=== PATIENT | male | born 1940 | race American Indian/Alaskan Native ===

== ENCOUNTER 2018-05-13 14:17 | Emergency (ER) | payer MEDICARE ==
[2018-05-13 14:17] VITALS: BMI 27.9
[2018-05-13 14:53] VITALS: TEMP 98.5
[2018-05-13] MEDS ORDERED: Enalaprilat 2.5 MG/2 ML IV STA (15:34)
[2018-05-13] MEDS ORDERED: Enalaprilat 2.5 MG/2 ML ONE (16:02)
[2018-05-13 16:10] VITALS: BP 178/88; PULSE 72; RESP 12; O2SAT 100
[2018-05-13 16:14] LABS: ALB/GLOB RATIO 1.1 (1.0-2.1); ALBUMIN 4.2 g/dL (3.5-5.0); CALCIUM 9.5 mg/dl (8.6-10.4)
[2018-05-13 16:18] LABS: BASO # 0.1 K/uL (0.0-0.2); BASO % 1.3 % (0.0-2.0); EOS # 0.1 K/uL (0.0-0.7); EOS % 1.6 % (0.0-4.0); HEMOGLOBIN 12.3 g/dL (12.0-18.0); LYMPH # 1.1 K/uL (1.0-4.3); LYMPH % 17.9 % (20.0-40.0); MEAN CORPUSCULAR HEMOGLOBIN 31.1 pg (27.0-31.0); MEAN CORPUSCULAR HGB CONC 33.5 g/dL (33.0-37.0); MEAN PLATELET VOLUME 8.6 fL (7.2-11.7); MONO # 0.6 K/uL (0.0-0.8); MONO % 9.6 % (0.0-10.0); NEUT # 4.2 K/uL (1.8-7.0); NEUT % 69.6 % (50.0-75.0); NRBC % 0.1 % (0.0-2.0); RBC 3.94 Mil/uL (4.40-5.90); RED CELL DISTRIBUTION WIDTH 14.1 % (11.5-14.5)
--- NOTE | 2018-05-13 16:23 | C.PDOC ---
History Of Present Illness 77yo man with h/o htn and atrial fib reporting lightheadedness for 1 day. Admits that he did not take his medication for htn this morning. Mild generalized weakness. +leg pain which has been chronic. Pt denies chest pain or shortness of breath or leg swelling. PMD Dr Calderon Time Seen by Provider: 05/13/18 15:07 Chief Complaint (Nursing): High Blood Pressure History Per: Patient History/Exam Limitations: no limitations Onset/Duration Of Symptoms: Gradual Associated Symptoms: Dizziness. denies: Chest Pain, Blurred Vision, Focal Weakness, Headache Quality Of Symptoms: Asymptomatic Past Medical History Reviewed: Historical Data, Nursing Documentation, Vital Signs Vital Signs: Last Vital Signs Temp 98.5 F 05/13/18 14:43 Pulse 72 05/13/18 16:10 Resp 12 05/13/18 16:10 BP 178/88 H 05/13/18 16:10 Pulse Ox 100 05/13/18 16:10 - Medical History PMH: Benign Prostatic Hyperplasia, HTN, Hypercholesterolemia, Osteoporosis Denies: Chronic Kidney Disease Surgical History: Endoscopy Family History: States: No Known Family Hx - Social History Hx Alcohol Use: No Hx Substance Use: No Review Of Systems Except As Marked, All Systems Reviewed And Found Negative. Constitutional: Positive for: Weakness Neurological: Positive for: Dizziness. Negative for: Headache Physical Exam - Physical Exam Appears: Well, Non-toxic Skin: Warm, Dry Head: Atraumatic, Normacephalic Eye(s): bilateral: PERRL, EOMI Throat: Normal Chest: Symmetrical, No Tenderness Cardiovascular: Rhythm Regular, No Murmur Respiratory: Normal Breath Sounds, No Wheezing Gastrointestinal/Abdominal: Soft, No Tenderness Back: Normal Inspection Extremity: Normal ROM, No Pedal Edema Neurological/Psych: Oriented x3, Normal Speech, Normal Cranial Nerves, Normal Motor, Normal Sensation ED Course And Treatment - Laboratory Results Result Diagrams: 05/13/18 15:56 05/13/18 15:56 Interpretation Of Abnormal: No emergently significant abnormalities. O2 Sat by Pulse Oximetry: 100 (RA) Pulse Ox Interpretation: Normal Progress Note: Pt's BP normalized with IV enaliprilat. DW pt findings. pt stable for discharge. Pt requesting refills of meds. Advised followup PMD urgently for refills. Plavix and Lasix rx given. Disposition - Disposition Referrals: Corry Calderon DO [[facility]] - 05/14/18 Disposition: HOME/ ROUTINE Disposition Time: 16:53 Condition: IMPROVED Prescriptions: Clopidogrel [Plavix] 75 mg PO DAILY #10 tab Furosemide [Lasix] 20 mg PO DAILY #10 tab Instructions: High Blood Pressure (DC) - Clinical Impression Clinical Impression: Hypertension
[2018-05-13 16:25] LABS: TROPONIN I 0.017 ng/mL (0.00-0.120)
--- NOTE | 2018-05-14 11:32 | CARD ---
APPROVED REPORT Date of service: 05/13/2018 EKG Measurement Heart [id number] <Conclusion> nsr,apcs, Nonspecific T wave abnormality Abnormal ECG
== END 2018-05-13 17:31 | disposition home or self-care (01) ==
LOC: C.ER 14:17
DX: I10 Essential (primary) hypertension (principal); I48.91 Unspecified atrial fibrillation; E78.00 Pure hypercholesterolemia, unspecified; N40.0 Benign prostatic hyperplasia without lower urinary tract symptoms

== ENCOUNTER 2018-06-18 02:10 | Inpatient (IN) | payer MEDICARE ==
[2018-06-18 02:10] VITALS: BMI 27.9
[2018-06-18] MEDS ORDERED: Lidocaine 2% Jelly (Uro-Jet) ONE (02:32)
--- NOTE | 2018-06-18 02:45 | C.PDOC ---
History Of Present Illness Patient had his dumas removed yesterday morning and presents in acute urinary retention. Last voided a few hours ago. No f/c/n/v. 5/10 discomfort Time Seen by Provider: 06/18/18 02:27 Chief Complaint (Nursing): Male Genitourinary History Per: Patient History/Exam Limitations: no limitations Onset/Duration Of Symptoms: Hrs Current Symptoms Are (Timing): Still Present Severity: Severe Pain Scale Rating Of: 6 Quality Of Discomfort: Sharp, Pressure Associated Symptoms: denies: Fever, Chills Alleviating Factors: None Recent travel outside of the [place]: No Additional History Per: Family Past Medical History Reviewed: Historical Data, Nursing Documentation, Vital Signs Vital Signs: Last Vital Signs Temp 98.1 F 06/18/18 02:34 Pulse 88 06/18/18 02:34 Resp 16 06/18/18 02:34 BP 180/91 H 06/18/18 02:34 Pulse Ox 99 06/18/18 02:34 - Medical History PMH: Benign Prostatic Hyperplasia, HTN, Hypercholesterolemia, Osteoporosis Denies: Chronic Kidney Disease Surgical History: Endoscopy Family History: States: No Known Family Hx - Social History Hx Alcohol Use: No Hx Substance Use: No Review Of Systems Constitutional: Negative for: Fever, Chills Gastrointestinal: Positive for: Other (globus vesicalis). Negative for: Nausea, Vomiting Genitourinary: Positive for: Other (urinary retention) Skin: Negative for: Rash Neurological: Negative for: Weakness Psych: Negative for: Anxiety Physical Exam - Physical Exam Appears: Non-toxic, In Acute Distress Gastrointestinal/Abdominal: Soft, Tenderness, Distention (bladder) Male Genital: Circumcised Neurological/Psych: Oriented x3 Gait: Steady ED Course And Treatment O2 Sat by Pulse Oximetry: 99 Pulse Ox Interpretation: Normal Progress Note: i've placed an 14 fr dumas without any difficulty. aprox 700 cc of clear urine drained. Pt with instant relief Disposition Counseled Patient/Family Regarding: Studies Performed, Diagnosis, Need For Followup - Disposition Referrals: Jaye Huerta MD [Staff Provider] - Disposition: HOME/ ROUTINE Disposition Time: 02:43 Condition: FAIR Instructions: Dumas Catheter, Male, Urinary Retention (DC) Forms: [employer] (Citizen Of [place]) - Clinical Impression Clinical Impression: Acute urinary retention
[2018-06-18 03:56] LABS: BASO % 0.5 % (0.0-2.0); EOS % 0.5 % (0.0-4.0); HEMOGLOBIN 11.8 g/dL (12.0-18.0); LYMPH # 0.7 K/uL (1.0-4.3); LYMPH % 8.2 % (20.0-40.0); MEAN CELL VOLUME 92.1 fL (80.0-94.0); MEAN CORPUSCULAR HEMOGLOBIN 30.5 pg (27.0-31.0); MEAN CORPUSCULAR HGB CONC 33.2 g/dL (33.0-37.0); MEAN PLATELET VOLUME 8.5 fL (7.2-11.7); MONO # 0.7 K/uL (0.0-0.8); MONO % 7.9 % (0.0-10.0); NEUT # 6.9 K/uL (1.8-7.0); NEUT % 82.9 % (50.0-75.0); PLATELET COUNT 236 K/uL (130-400); RBC 3.85 Mil/uL (4.40-5.90); RED CELL DISTRIBUTION WIDTH 14.2 % (11.5-14.5); WHITE BLOOD COUNT 8.3 K/uL (4.8-10.8)
[2018-06-18 04:01] LABS: INR 1.1; PROTHROMBIN TIME 11.5 SECONDS (9.7-12.2)
[2018-06-18 04:03] LABS: CALCIUM 8.2 mg/dl (8.6-10.4)
[2018-06-18] MEDS ORDERED: Potassium Chloride 10 mEq ER Tab PO STA (04:13)
[2018-06-18] MEDS ORDERED: Potassium Chloride 20 mEq ER Tab PO ONE (04:29)
[2018-06-18 05:03] LABS: BANDS 1 % (0-2); LYMPHOCYTE 6 % (20-40); MONOCYTE 12 % (0-10); NEUTROPHIL 81 % (50-75); TOTAL CELLS COUNTED 100
[2018-06-18 05:04] LABS: ANISOCYTOSIS SLIGHT; PLATELET ESTIMATE NORMAL (NORMAL)
[2018-06-18 11:52] VITALS: RESP 20
[2018-06-18] MEDS ORDERED: Glucagon Recombinant 1 mg Inj IM PRN (14:37)
[2018-06-18] MEDS ORDERED: Dextrose 50% SYRINGE Inj (50 ml) IV PRN (14:37)
--- NOTE | 2018-06-18 17:01 | CT ---
Date of service: 06/18/2018 PROCEDURE: CT HEAD WITHOUT CONTRAST. HISTORY: R/O CVA COMPARISON: None available. TECHNIQUE: Axial computed tomography images were obtained through the head/brain without intravenous contrast. Radiation dose: Total exam DLP = 1088.15 mGy-cm. This CT exam was performed using one or more of the following dose reduction techniques: Automated exposure control, adjustment of the mA and/or kV according to patient size, and/or use of iterative reconstruction technique. FINDINGS: HEMORRHAGE: No acute parenchymal, subarachnoid or extra-axial hemorrhage. BRAIN: Moderate to fairly significant diffuse/confluent chronic periventricular white matter ischemic changes seen extending peripherally into the deep and subcortical white matter both cerebral hemispheres. Changes extend into white matter tracts of both basal nuclei. Left greater than right. Few chronic tiny lacunar-type infarcts scattered about both basal nuclei also felt to be present. There also appears to be more discrete deep white matter infarct left frontal region which is associated with ex vacuo dilatation of the left frontal horn and anterior body left lateral ventricle. Note that the possibility of a small hyperacute infarct cannot be excluded based on this exam. Moderate generalized volume loss with common not withstanding ex vacuo dilatation of the left lateral ventricle mentioned above. Vascular calcifications both carotid siphons VENTRICLES: Un no obstructive hydrocephalus. CALVARIUM: There are no acute calvarial fractures. PARANASAL SINUSES: Small focus of polypoid like mucosal thickening right maxillary antrum. Minimal mucosal thickening multiple ethmoid air cells extending superiorly into the inferior margin of the slight the hypoplastic frontal sinus MASTOID AIR CELLS: Partial opacification several inferior right-sided mastoid air cells. OTHER FINDINGS: Changes of bilateral cataract surgery present. IMPRESSION: Moderate to fairly significant diffuse/confluent chronic periventricular white matter ischemic changes seen extending peripherally into the deep and subcortical white matter both cerebral hemispheres. Changes extend into white matter tracts of both basal nuclei. Left greater than right. Few chronic tiny lacunar type infarcts type scattered about both basal nuclei also felt to be present. There also appears to be more discrete deep white matter infarct left frontal region which is associated with ex vacuo dilatation of the left frontal horn and anterior body left lateral ventricle.. Moderate generalized volume loss
[2018-06-18] MEDS: (Novolog) Insulin Aspart, Recombinant 100 u/ml 10 ml vial SC SCH ×2 (17:35→23:06)
--- NOTE | 2018-06-19 06:21 | HP ---
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 The patient stated that at first he had some difficulty to urinate and went to the hospital. A catheter was inserted, but the day after the catheter was removed by urologist. The patient again had this urinary retention. At that time, the patient came back to the Emergency Room at [facility], and the [place] catheter was replaced again but recommendation was made for the patient to be admitted. In fact, the patient also stated that he had some difficulty walking with both feet on the floor, but I did not see any difference from last week when I saw the patient in my office. The patient still complains of this weakness of both lower extremities. ALLERGIES: NO KNOWN ALLERGY. PAST MEDICAL HISTORY: History of hypertension, BPH, and also hyperlipidemia. There is no history of CKD. SOCIAL HISTORY: The patient has no history of smoking or alcohol abuse. 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 FAMILY HISTORY: No inherited disease. REVIEW OF SYSTEMS: RESPIRATORY SYSTEM: No shortness of breath. CARDIOVASCULAR: Denies any chest pain. GASTROINTESTINAL: The patient is having some epigastric discomfort. GENITOURINARY: The patient has discomfort in the genital area, having a Canada catheter in place. NEUROLOGIC: The patient is complaining of weakness in both lower extremities and also some numbness of both lower extremities. PHYSICAL EXAMINATION: GENERAL: The patient is alert, awake, and oriented x3 and pleasant. VITAL SIGNS: Blood pressure of 160/88, pulse 79, respiration 20, temperature 98.8. HEENT: Head is normocephalic. NECK: Supple. No JVD. LUNGS: Clear. HEART: Regular rate and rhythm. Positive murmur. ABDOMEN: Soft, obese. Mild epigastric tenderness. EXTREMITIES: There is no edema noted. NEUROLOGIC: There is no apparent motor deficit, but the patient is still complaining of and numbness in the lower extremities and difficulty walking. LABORATORY DATA: The patient has some tests done. WBC 8.2, hemoglobin 11.8, hematocrit 35.4, and platelet is 216. Chemistry: Sodium 134, potassium 3, chloride 95, bicarb 27, BUN 36, creatinine 2.2, glucose 74, and calcium 8.2. Coag showed PT 11.5, INR 1.1, and PTT 33. The patient had a CAT scan of the head. The CT of the head without contrast revealed the patient has moderate to fairly diffuse confluent chronic periventricular white matter ischemic change extending into the deep and subcortical white matter posterior wall . There also appeared to be more discrete and deep white matter infarct in left frontal region which is associated with of the left frontal horn and anterior body of left lateral ventricle. IMPRESSION: The patient is admitted with diagnoses of: 1. Acute urinary retention. 2. Chronic kidney disease. 3. Hypertension. 4. Chronic cerebrovascular accident. 5. Weakness of both lower extremities. 6. Benign prostatic hypertrophy. 7. Hyperlipidemia. PLAN: The patient will have a consult with Dr. Huerta. We ordered a consult also with Dr. Burrell for medical clearance and followup of the hypertensive history. Also, we ordered a neuro consult because of the weakness of both lower extremities. The case was reviewed and discussed with Chelsie Gar, the nurse practitioner. Neville Cruz MD
[2018-06-19 08:31] LABS: CALCIUM 8.2 mg/dl (8.6-10.4)
[2018-06-19] MEDS: (Novolog) Insulin Aspart, Recombinant 100 u/ml 10 ml vial SC SCH ×4 (09:20→22:54)
[2018-06-19] MEDS: Multiple Vitamins Tab PO SCH (11:54)
--- NOTE | 2018-06-19 12:00 | CT ---
Date of service: 06/18/2018 PROCEDURE: CT Abdomen and Pelvis without intravenous contrast HISTORY: urinary retention /flank pain COMPARISON: Pain TECHNIQUE: Without contrast.. Contrast dose: 0 Radiation dose: Total exam DLP = 710.55 mGy-cm. This CT exam was performed using one or more of the following dose reduction techniques: Automated exposure control, adjustment of the mA and/or kV according to patient size, and/or use of iterative reconstruction technique. FINDINGS: LOWER THORAX: Linear scar/atelectasis both lower lobes. Cardiomegaly. LIVER: Unremarkable. No gross lesion or ductal dilatation. GALLBLADDER AND BILE DUCTS: Unremarkable. PANCREAS: Unremarkable. No gross lesion or ductal dilatation. SPLEEN: Unremarkable. ADRENALS: Left adrenal hypertrophy. Right adrenal low-density mass, 1.6 cm in diameter, measuring 1.9 Hounsfield units. Consistent with adrenal adenoma (lipid rich). No further evaluation required. KIDNEYS AND URETERS: 11 mm nonobstructing right lower pole renal calculus. Possible tiny hyperdense cyst mid left kidney, 5 mm diameter. Consider correlation with ultrasound examination. VASCULATURE: Unremarkable. No aortic aneurysm. No aortic atherosclerotic calcification or mural plaque present. BOWEL: Unremarkable. No obstruction. No gross mural thickening. APPENDIX: unremarkable. Normal appendix. PERITONEUM: Very small umbilical hernia containing only mesenteric fat. No ascites. No pneumoperitoneum no inguinal hernia. LYMPH NODES: Unremarkable. No enlarged lymph nodes. BLADDER: Decompressed around [place] catheter balloon. There is high attenuation material seen within the bladder lumen raising some suspicion of hematuria. Correlate clinically. Bladder wall is thickened, despite the decompressed nature of the bladder. Correlate for cystitis. REPRODUCTIVE: Enlarged prostate BONES: Paget's disease noted involving the 3rd lumbar vertebral body. This extends into the posterior elements. Mild compression deformity of the L3 vertebra with some retropulsion of the posterior margin of the vertebral body. Severe central spinal stenosis at the L3 and L3-4 vertebral levels. Also moderate spinal stenosis at the L4-5 level due to disc bulge. Paget's disease likely involving the left iliac bone. Likely involving the right sacral ala. Involves the left hemipelvis with involvement of both the superior and inferior left pubic rami. Possible Paget's disease involving both femoral heads. OTHER FINDINGS: None. IMPRESSION: 11 mm nonobstructing right lower pole renal calculus. Possible tiny hyperdense cyst mid left kidney. Correlate with ultrasound examination. Thickened bladder wall though the bladder is decompressed. Consider correlation with urinalysis for possible cystitis. Possible bloody urine contents within bladder. Correlate for hematuria. Right adrenal adenoma, 1.6 cm diameter. Multifocal Paget's disease as described. Mild compression deformity of the L3 vertebra. Central spinal stenosis from L3 through L4-5.
--- NOTE | 2018-06-19 14:23 | CARD ---
APPROVED REPORT Date of service: 06/19/2018 EXAM: Two-dimensional and M-mode echocardiogram with Doppler and color Doppler. Other Information Quality : GoodRhythm : RISK FACTORS Hypertension 2D DIMENSIONS IVSd1.5 (0.7-1.1cm)Aortic Root (2D)3.2 (2.0-3.7cm) LVDd4.8 (3.9-5.9cm)PWd1.3 (0.7-1.1cm) LA Adiaqm37 (18-58mL)LVDs2.7 (2.5-4.0cm) FS (%) 43.4 %LVEF (%)74.4 (>50%) LVEF (Bowers's)70.66 %IVC0.00 cm M-Mode DIMENSIONS RVDd1.98 (2.1-3.2cm)Left Atrium (MM)3.85 (2.5-4.0cm) IVSd1.49 (0.7-1.1cm)Aortic Root2.92 (2.2-3.7cm) LVDd4.44 (4.0-5.6cm)Aortic Cusp Exc.1.53 (1.5-2.0cm) PWd1.32 (0.7-1.1cm)FS (%) 38 % LVDs2.74 (2.0-3.8cm)TAPSE19.18 cm LVEF (%)69 (>50%) Aortic Valve AI P 1/2 [id number] Mitral Valve MV E Xmfmztow07.9cm/sMV A Psliiywe75.2cm/sE/A ratio0.7 TDI Lateral E' Peak V4.03cm/sMedial E' Peak V3.19cm/sE/Lateral E'14.9 E/Medial E'18.8 Tricuspid Valve TR Peak Etihvyzo020ov/sTR Peak Gr.22ydOhTJWR15egHv LEFT VENTRICLE The left ventricle is normal size. There is borderline concentric left ventricular hypertrophy. The left ventricular function is normal. The left ventricular ejection fraction is within the normal range. There is normal LV segmental wall motion. Transmitral Doppler flow pattern is abnormal. RIGHT VENTRICLE The right ventricle is normal size. ATRIA The left atrium size is normal. AORTIC VALVE The aortic valve is thickened but opens well. There is trace aortic regurgitation. MITRAL VALVE Mitral regurgitation is trace to mild. TRICUSPID VALVE There is mild tricuspid regurgitation. <Conclusion> Normal LV systolic function. Diastolic dysfunction. Normal chamber size. Trac eAR. Trace to mild MR. Mild TR.
[2018-06-19 16:53] VITALS: O2SAT 96
--- NOTE | 2018-06-20 00:10 | CON ---
DATE: 06/19/2018 REASON FOR CONSULTATION: Hypertension and questionable CVA. HISTORY OF PRESENT ILLNESS: The patient is a 78-year-old -[place] male who has a history of hypertension and is being followed by his i&c tech, Dr. Uribe in [place], but denies any prior history of heart attack or coronary intervention. He visited his primary physician, Dr. Cruz, yesterday because of weakness as well as urinary retention. The patient denies any chest pain or shortness of breath. The patient is unaware of any history of stroke or heart attack in the past. SOCIAL HISTORY: Nonsmoker, nondrinker. He lives with his family. MEDICATIONS: Hydralazine 25 mg twice a day, Coreg 3.125 mg twice a day, Crestor 10 mg once a day, aspirin 81 mg once a day, Flomax 0.4 mg once a day, heparin 5000 units subcutaneous every 12 hours, multivitamin 1 tablet daily, Norvasc 10 mg once a day, Pepcid 20 mg once a day. The patient is also receiving a total of 60 mEq of potassium chloride intravenous replacement 20 mg once a day. REVIEW OF SYSTEMS: At this time, the patient denies any dizziness, blurry vision, or shortness of breath. PAST MEDICAL HISTORY: Hypertension and hyperlipidemia. PHYSICAL EXAMINATION: GENERAL: The patient is an elderly male who does not appear to be in any distress. VITAL SIGNS: Blood pressure 146/64, heart rate 72, temperature 98.7, respirations 20. HEENT: Normocephalic. NECK: No JVD. CHEST: Clear. HEART: S1 and S2 regular. ABDOMEN: Soft. EXTREMITIES: No edema. LABORATORY DATA: Hemoglobin and hematocrit 11.8 and 35.4. White count and platelet count are within normal limit. Today's SMA-7, sodium 134, potassium 2.9, chloride 97, CO2 of 30, glucose 151, BUN 25, creatinine 1.9. Yesterday's BUN and creatinine were 36 and 2.2 respectively. PT, PTT and INR are within normal limits. EKG revealed sinus rhythm with first-degree AV block, nonspecific T-wave changes. Head CT scan without contrast, moderate diffuse chronic periventricular white matter ischemic changes extending peripherally into the deep and subcortical white matter of both cerebral hemispheres. Changes extend into white matter tracts of both basal nuclei, left greater than right. Few chronic tiny lacunar-type infarcts in both basal ganglia. Moderate generalized volume loss. Abdomen and pelvis CT scan, 11 mm nonobstructing right lower pole renal calculus. Possible tiny hyperdense cyst, mid left kidney, correlate with ultrasound examination. Right adrenal adenoma, 1.6 cm diameter, multifocal Paget's disease, mild compression deformity of L3 vertebra. ASSESSMENT: 1. Hypertension. 2. History of cerebrovascular accidents according to CAT scan finding of multiple bilateral basal ganglia lacunar infarcts. 3. Bilateral lower extremity weakness. 4. Severe hypokalemia. 5. Urinary retention and obstructive uropathy. 6. Hyperlipidemia. RECOMMENDATIONS: Continue hydralazine 25 mg twice a day, Coreg 3.125 mg twice a day, Crestor 10 mg once a day, aspirin 81 mg once a day, Flomax 0.4 mg once a day, glipizide 10 mg once a day, heparin 5000 units subcutaneously every 12 hours, Norvasc at 10 mg once a day, Pepcid 20 mg twice a day. Optimize potassium replacement and follow up BMP. Continue enalapril 20 mg daily. I will review the echocardiographic study performed today. Xander Burrell MD MTDD
--- NOTE | 2018-06-20 01:35 | PN ---
DATE: 06/19/2018 SUBJECTIVE: Today, the patient is alert and awake. Denies any shortness of breath or any chest pain. The patient has current Canada catheter removed early this morning; however, the patient did not have micturition since then that is from 12 to now, it is about almost 8 o' clock. PHYSICAL EXAMINATION: VITAL SIGNS: Blood pressure is 160/64, pulse 71, respirations 20, temperature 98.1. NECK: Supple. No JVD. LUNGS: Clear. HEART: Regular rate and rhythm with positive murmur. ABDOMEN: Soft, obese, nontender. No palpable mass. EXTREMITIES: There is no edema. ASSESSMENT AND PLAN: The patient had lab ordered and bladder scan which is not done yet. The patient wants to go home, stating that he has some important meeting for tomorrow, but however, we went to have the bladder scan before discharging the patient or may be we will put the patient on [place] catheter prior to discharge. Bladder scan has shown the patient has over 1000 mL of urine. We recommended to put the [place] catheter in at this point, and we will contact Dr. Huerta, urologist, before discharging the patient in the hospital. Neville Cruz MD
[2018-06-20 05:23] VITALS: PULSE 89; TEMP 98.8
[2018-06-20] MEDS: (Novolog) Insulin Aspart, Recombinant 100 u/ml 10 ml vial SC SCH (08:25)
[2018-06-20 09:45] VITALS: BP 153/72
[2018-06-20] MEDS: Multiple Vitamins Tab PO SCH (09:45)
--- NOTE | 2018-06-20 11:04 | PCM.URO ---
Urology Progress Note - Subjective Fever & Chills: Yes Other: full note dictated. and see previous notes as well. 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 He has previously had an emergency in the [facility]. requiring a SPT and has recurrent episodes of hematuria and even now he has had three episodes of gross hematuria nd retention and his first request today is to remove the catheter. i would consider a second opinion . or i would consider "competency to make decisions". thanks - Objective Lab Results Last 24 Hours: Laboratory Results - last 24 hr 06/19/18 06/19/18 06/19/18 11:18 12:23 16:59 POC Glucose (mg/dL) 166 H 140 H Phosphorus 2.9 Magnesium 1.8 06/19/18 06/20/18 06/20/18 22:03 02:25 06:34 POC Glucose (mg/dL) 281 H 198 H 157 H Phosphorus Magnesium Intake & Output: Intake & Output 06/19/18 06/20/18 06/20/18 18:59 06:59 18:59 Output Total 300 1900 Balance -300 -1900 Output: Urine 300 1900 Urethral ([place]) 300 1900 Vital Signs: Vital Signs - 24 hr 06/19/18 06/19/18 06/19/18 16:00 17:08 23:40 Temperature 98.1 F 98.8 F Pulse Rate 71 89 Respiratory 20 20 Rate Blood Pressure 172/89 H 150/64 158/76 H O2 Sat by Pulse 96 96 Oximetry 06/20/18 09:44 Temperature Pulse Rate Respiratory Rate Blood Pressure 153/72 H O2 Sat by Pulse Oximetry
[2018-06-20] MEDS ORDERED: Influenza Vaccine 60 mcg/0.5 mL SYR (4YR UP) IM ONE (14:00)
[2018-06-20] MEDS ORDERED: Pneumococcal 23-Valent Vaccine IM ONE (14:00)
--- NOTE | 2018-06-20 15:45 | PN ---
DATE: 06/20/2018 SUBJECTIVE: The patient denies chest pain,dizziness, or palpitations. PHYSICAL EXAMINATION: VITAL SIGNS: Blood pressure 153/72, heart rate 89, temperature 98.8, and respirations 20. HEENT: Normocephalic. CHEST: Clear. HEART: S1 and S2 regular. EXTREMITIES: No edema. LABORATORY DATA: Today's blood sugars are 198, 157, and 249 respectively. Echocardiographic study report normal left ventricular systolic function, diastolic dysfunction, normal chamber size, and mild tricuspid insufficiency. Urology evaluation, the patient had recurrent episodes of hematuria, even now he has had three episodes of gross hematuria and retention and he has requested to remove the catheter, I would consider second opinion or I will consider competency to make a decision. ASSESSMENT: 1. Hypertension. 2. History of cerebrovascular accident with evidence of bilateral basal ganglia lacunar infarcts. 3. Bilateral lower extremity weakness on admission. 4. Hypokalemia. 5. Hematuria and urinary retention. 6. Hyperlipidemia. RECOMMENDATIONS: Continue hydralazine 25 mg b.i.d., Coreg 3.125 mg twice a day, Crestor 10 mg once a day, aspirin 81 mg once a day, glipizide 10 mg daily, heparin 5000 units subcutaneous every 12 hours, Norvasc 10 mg once a day, Pepcid 20 mg p.o. daily, Vasotec 20 mg once a day. The plan is to discharge the patient today based on his own request. I did mention to the patient and his family member at the bedside to make sure that the patient follows up with his trim attacher, Dr. Uribe in [place]. Xander Burrell MD
--- NOTE | 2018-06-21 01:45 | PN ---
DATE: 06/20/2018 SUBJECTIVE: The patient is alert and awake and the patient had a [place] catheter last night, that was yesterday, that was discontinued, but the patient had a bladder scan that had contained 1000 mL of urine, so we inserted a catheter, but today the patient wanted to have the catheter removed and that was done as per Dr. Huerta's order. The patient still wanted to go home and stating that he got some important meeting to attend today. PHYSICAL EXAMINATION: VITAL SIGNS: Blood pressure was 152/72, pulse is 89, respirations 20, temperature 98.8. NECK: Supple. LUNGS: Clear. HEART: Regular rate and rhythm. ABDOMEN: Soft with mild epigastric tenderness. The patient did not make any urine after removing the [place] catheter. EXTREMITIES: There is no edema. ASSESSMENT AND PLAN: The plan is that we are going to ask Dr. Huerta to re-insert the [place] catheter, but the patient is having issue and the patient wants to go home. As per Dr. Huerta, the patient will be discharged and should be discharged against medical advice. Since, he was expecting to have the urinary retention again. We have explained to the patient the problems, but apparently the patient has still decided to go home. The patient will sign against medical advice. The case was reviewed with Jeanne Gar, nurse practitioner. Neville Cruz MD
--- NOTE | 2018-06-21 17:16 | CARD ---
APPROVED REPORT Date of service: 06/18/2018 EKG Measurement Heart [id number] <Conclusion> Sinus rhythm with 1st degree AV block Nonspecific T wave abnormality Abnormal ECG
--- NOTE | 2018-06-23 03:58 | PN ---
DATE: 06/19/2018 See the consult note from 06/18/2018. DIAGNOSES: Urinary retention, gross hematuria, voiding dysfunction, elevated prostate-specific antigen, erectile dysfunction, and ejaculatory dysfunction and concerns about it. SUBJECTIVE: The patient's requests first thing is to give him a voiding trial. See the plans listed above. PAST MEDICAL AND SURGICAL: No other changes. PHYSICAL EXAM: No changes. DIAGNOSES: Urinary retention, gross hematuria, voiding dysfunction. My plan would be to continue Canada and to arrange for surgical procedure. My recommendation is for an open prostatectomy. The patient requested a trial of void, so the plan is as follows. Voiding trial, Flomax, and then see how the patient does clinically and then make further recommendations and plans. Iftikhar Huerta MD
--- NOTE | 2018-06-23 07:56 | PN ---
DATE: 06/20/2018 See the consult note from 06/18/2018. See the daily progress note from 06/19/2018. The patient basically failed his voiding trial. I, last night spoken to Mi. We asked her to do a bladder scan for the patient at 5 o'clock at night, and he has not yet voided but did want the Canada put back in. So we asked for a bladder scan upon which we are going to do at 7 or 8 o'clock at night with a large residual stent, to call me then. Although, we did not speak. She did insert a [place] catheter with a large residual. The patient felt better from a bladder standpoint. He still has some sensation and felt better with the Canada. The first thing out of his mouth this morning that he wanted to remove the catheter. I told him that is really very difficult to recommend or even allow. See the plan listed as below. He has urinary retention, gross hematuria, elevated PSA, voiding dysfunction. Past medial, surgical and physical exam, no other changes. The patient has an indwelling [place] catheter. It is working well and it is in the proper location. It does not look like it is spitting out distally. It looks like it is fairly down throughout. My recommendation is to leave the [place] catheter in. I hope the patient to go and get a second opinion that will still take care of him. I would like to take care of him. He is very pleasant about all the matters, but he is extremely noncompliant, maybe he feels better to know the second opinion will make the same recommendations. Or perhaps there's other ways to do it and then I could follow those recommendations, but my next step would be surgical intervention unless the patient refuses. Further plans are as follows: 1. Canada is still draining. 2. Outpatient treatment. 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 Addendum to the note, actually I got a phone call from nurse ____ who is demanding that the Canada be removed. So we did and then the patient also signed out against medical advice. ADDENDUM: As a routine because I knew the patient signed out on 06/20/2018 AMA. I called him today. Today's date is 06/22/2018. It is Saturday. I called him up to know how he is doing, just to check in with him and invite back to the office. I told me that he actually had to go back to the emergency room, have a Canada catheter inserted. He currently has a Canada catheter in place and he is going to jump to the office tomorrow on 06/23/2018. I told him we be gladly to accommodate him and then discuss other options. Again, I have emphasized the patient to come to the office for second opinion. Iftikhar Huerta MD
--- NOTE | 2018-06-23 09:21 | DS ---
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 A [place] catheter was placed in the emergency room. The patient was admitted for further workup. It has to be mentioned that the patient was complaining of some weakness in the left lower extremity which is new since the patient was seen by me a week ago, was walking without any limitation. So, the patient had some tests done including a CT of the head significant for some infarct location. The patient was put on [place] catheter and started improving, but decision was made by the patient to remove the [place] catheter and the patient was unable to urinate. 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 Neville Cruz MD
--- NOTE | 2018-06-23 10:32 | CON ---
DATE: 06/18/2018 REASON FOR CONSULTATION: Gross hematuria and urinary retention. See the history and physical for further details. 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 He is here with his daughter now. This will be about the second or third visit most recently. He is extremely pleasant, but extremely, extremely noncompliant gentleman who has a history of urinary retention, gross hematuria, voiding dysfunction, elevated PSA, does not really allow for workup and treatment. In fact, the patient had been in [facility] a while back where they were not able to get a Canada and they needed to do some kind of cystostomy tube, does not not standard, something I am familiar with. I do not even know what was done to his prostate at that time. He came home with the catheter that we then removed. The patient comes to my office on a regular basis, but then he comes to just collect, try and mix medications, medication used for erectile dysfunction, and despite my recommendation, he has not followed them. He now has had recurrent episodes of gross hematuria and urinary retention. He has a tremendously large prostate, about 4 cm with a giant intravesical component. We recommended surgical approach, and I have also discussed with the patient, but he does not like my recommendation. I still wanted to take care of him and I am not trying to discard. We will discharge him out of my service, but perhaps he would be best served, get a second opinion, see if they did different recommendation, and then either I would follow that recommendation if there is a better option or if he perhaps feel more secure that my recommendations are in fact the proper recommendation. He insists that he does not want it. He wants me to take care of him, but I definitely recommended at great length. I am going to discuss this further with his daughter. See further plans listed below. PAST MEDICAL AND SURGICAL HISTORY: The patient of Dr. Cruz. No major interim changes. No history of an [place] or CVA. 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 I do not believe he lives with his , may be . He is . He is a nonsmoker. 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 REVIEW OF SYSTEMS: As above. No weight loss, chest pain, shortness of breath, or the like. PHYSICAL EXAMINATION: GENERAL: A well-nourished male, in no apparent distress. VITAL SIGNS: Within normal limits in the chart. LUNGS: Clear. ABDOMEN: Overall soft, nontender. No flank mass. There is no acute abdomen. GENITOURINARY: Canada catheter in place, draining clear urine at this point. LABORATORY DATA: There is a see chart. elevated. DIAGNOSES: Gross hematuria, urinary retention, voiding dysfunction, and erectile dysfunction. ASSESSMENT AND PLAN: In summary, a very pleasant gentleman. He is very interested in having his ejaculatory function and he is very concerned about any surgical procedures affecting this. He is worried about erectile dysfunction, but mostly about ejaculations. So, at this time, I have discussed with the patient the risks associated with any procedures including my recommendation is generally speaking at this point for an open prostatectomy. I do not believe that his prostate has been a point that we could do a laser, but did explain to the patient we would be willing to try it but that is definitely not the recommendation, and my best recommendation is that the patient have an open prostatectomy. So, until then, we are going to leave the [place] for now and then make further recommendation. Plan, we will follow the patient. Labs are pending. We will discuss further plans with the patient and the daughter with treatment alternatives. Iftikhar Huerta MD
--- NOTE | 2018-06-27 12:29 | PQF ---
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 No Acute CVA . Weakness of the lower extremities was not due to CV A but due to neuropathy. REVIEWER QUERY TEXT: Clarification of Clinical Diagnostic Findings Please clarify documentation or clinical relevance for the clinical / diagnostic findings or whether those are insignificant or unable to be further specified. 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 Bilateral lower extremity weakness. Please clarify if CVA was ruled in or ruled out.; Weakness of lower extremity due to CVA? Query created by: Kathrin Solorio on 06/23/2018 7:59 AM Electronically signed by: Neville Cruz MD 06/27/2018 12:26 PM
== END 2018-06-20 13:30 | disposition left against medical advice (07) | DRG 726 ==
LOC: C.ER 02:10 → C.9E 03:41 → C.6T 04:18 → C.9E 04:32 → C.5S 06:24 → C.9E 06:53 → C.5S 08:46 → C.9E 09:13 → C.6T 11:44
PROVIDERS: ADMIT Specialist; ATTEND Specialist
DX: N40.1 Benign prostatic hyperplasia with lower urinary tract symptoms (principal); N13.8 Other obstructive and reflux uropathy; R33.8 Other retention of urine; E78.5 Hyperlipidemia, unspecified; G57.93 Unspecified mononeuropathy of bilateral lower limbs; I12.9 Hypertensive chronic kidney disease with stage 1 through stage 4 chronic kidney disease, or unspecified chronic kidney disease; N18.9 Chronic kidney disease, unspecified; R53.1 Weakness; I44.0 Atrioventricular block, first degree; E87.6 Hypokalemia; Z91.19 Patient's noncompliance with other medical treatment and regimen; R31.0 Gross hematuria; N52.9 Male erectile dysfunction, unspecified; N53.19 Other ejaculatory dysfunction

== ENCOUNTER 2018-07-02 13:27 | Inpatient (IN) | payer MEDICARE ==
[2018-07-02 14:14] VITALS: BMI 28.5
[2018-07-02 14:38] LABS: INR 1.1; PROTHROMBIN TIME 11.5 SECONDS (9.7-12.2)
[2018-07-02 14:40] LABS: BASO # 0.1 K/uL (0.0-0.2); BASO % 1.1 % (0.0-2.0); EOS # 0.2 K/uL (0.0-0.7); EOS % 3.1 % (0.0-4.0); HEMOGLOBIN 11.1 g/dL (12.0-18.0); LYMPH # 0.9 K/uL (1.0-4.3); LYMPH % 14.6 % (20.0-40.0); MEAN CORPUSCULAR HEMOGLOBIN 30.4 pg (27.0-31.0); MEAN CORPUSCULAR HGB CONC 32.2 g/dL (33.0-37.0); MEAN PLATELET VOLUME 8.3 fL (7.2-11.7); MONO # 0.4 K/uL (0.0-0.8); MONO % 6.5 % (0.0-10.0); NEUT # 4.8 K/uL (1.8-7.0); NEUT % 74.7 % (50.0-75.0); NRBC % 0.1 % (0.0-2.0); RBC 3.64 Mil/uL (4.40-5.90); RED CELL DISTRIBUTION WIDTH 14.1 % (11.5-14.5); WHITE BLOOD COUNT 6.4 K/uL (4.8-10.8)
[2018-07-02 14:43] LABS: ALB/GLOB RATIO 1.2 (1.0-2.1); ALBUMIN 4.3 g/dL (3.5-5.0); CALCIUM 9.2 mg/dl (8.6-10.4)
[2018-07-02 14:46] LABS: SQUAMOUS EPITHIAL 1 /hpf (0-5); URINE BACTERIA FEW (<OCC); URINE BILIRUBIN NEGATIVE (NEGATIVE); URINE BLOOD 3+ (NEGATIVE); URINE CALCIUM OXALATE CRYSTALS OCC /hpf (<OCC); URINE CLARITY Hazy (Clear); URINE COLOR Yellow (YELLOW); URINE GLUCOSE (UA) 1+ mg/dL (Normal); URINE HYALINE CAST 0-2 /lpf (0-2); URINE LEUKOCYTE ESTERASE 3+ Leu/uL (Negative); URINE PROTEIN 3+ mg/dL (NEGATIVE); URINE UROBILINOGEN NORMAL mg/dL (0.2-1.0)
[2018-07-02 14:47] LABS: MEAN CELL VOLUME 94.3 fL (80.0-94.0)
[2018-07-02] MEDS: Sodium Chloride 0.9% 1,000 ML IV SCH (14:49)
[2018-07-02] MEDS ORDERED: cefTRIAXone IV 1 gm in Dextros 50 ML IV ONE (14:50)
--- NOTE | 2018-07-02 14:50 | RAD ---
Date of service: 07/02/2018 HISTORY: SOB COMPARISON: No prior. TECHNIQUE: Chest PA and lateral FINDINGS: LUNGS: No active pulmonary disease. PLEURA: No significant pleural effusion identified. No pneumothorax apparent. CARDIOVASCULAR: No aortic atherosclerotic calcification present. Normal cardiac size. No pulmonary vascular congestion. OSSEOUS STRUCTURES: No significant abnormalities. VISUALIZED UPPER ABDOMEN: Normal. OTHER FINDINGS: None. IMPRESSION: No active disease.
--- NOTE | 2018-07-02 15:05 | C.PDOC ---
History Of Present Illness 78 y/o male,w/PMhx of BPH, presents to the ER for evaluation after he had dumas cather placed for the past 1 week[address] Patient states that Dr. Lizeth Huerta referred him to the ER for admission. Patient reports that he has surgery tomorrow.Denies having fever and chills. Time Seen by Provider: 07/02/18 13:55 Chief Complaint (Nursing): Medical Clearance History Per: Patient History/Exam Limitations: no limitations Past Medical History Reviewed: Historical Data, Nursing Documentation, Vital Signs Vital Signs: Last Vital Signs Temp 97.9 F 07/02/18 14:37 Pulse 80 07/02/18 14:37 Resp 16 07/02/18 14:37 BP 154/76 H 07/02/18 14:37 Pulse Ox 97 07/02/18 14:37 - Medical History PMH: Benign Prostatic Hyperplasia, HTN, Hypercholesterolemia, Hyperlipidemia, Osteoporosis Denies: Chronic Kidney Disease Surgical History: Endoscopy Family History: States: No Known Family Hx - Social History Hx Alcohol Use: No Hx Substance Use: No Review Of Systems Except As Marked, All Systems Reviewed And Found Negative. Constitutional: Negative for: Fever, Chills Physical Exam - Physical Exam Appears: Non-toxic, No Acute Distress Skin: Normal Color, Warm, Dry Head: Atraumatic, Normacephalic Eye(s): bilateral: Normal Inspection Nose: Normal Oral Mucosa: Moist Neck: Supple Chest: Symmetrical Cardiovascular: Rhythm Regular Respiratory: Normal Breath Sounds, No Rales, No Rhonchi, No Wheezing Gastrointestinal/Abdominal: Soft, No Tenderness, No Guarding, No Rebound Extremity: Normal ROM, Other (dumas catheter in place) Neurological/Psych: Oriented x3, Normal Speech ED Course And Treatment - Laboratory Results Result Diagrams: 07/02/18 14:26 07/02/18 14:26 Lab Results: PT 11.5 SECONDS (9.7-12.2) 07/02/18 14:26 INR 1.1 07/02/18 14:26 Total Bilirubin 0.5 mg/dL (0.2-1.3) 07/02/18 14:26 AST 15 U/L (17-59) L 07/02/18 14:26 ALT 12 U/L (21-72) L D 07/02/18 14:26 Alkaline Phosphatase 191 U/L (38-126) H 07/02/18 14:26 Total Protein 7.9 g/dL (6.3-8.3) 07/02/18 14:26 Albumin 4.3 g/dL (3.5-5.0) 07/02/18 14:26 Globulin 3.6 gm/dL (2.2-3.9) 07/02/18 14:26 Albumin/Globulin Ratio 1.2 (1.0-2.1) 07/02/18 14:26 Urine Color Yellow (YELLOW) 07/02/18 14:34 Urine Clarity Hazy (Clear) 07/02/18 14:34 Urine pH 5.0 (5.0-8.0) 07/02/18 14:34 Ur Specific [place] 1.013 (1.003-1.030) 07/02/18 14:34 Urine Protein 3+ mg/dL (NEGATIVE) H 07/02/18 14:34 Urine Glucose (UA) 1+ mg/dL (Normal) H 07/02/18 14:34 Urine Ketones Negative mg/dL (NEGATIVE) 07/02/18 14:34 Urine Blood 3+ (NEGATIVE) H 07/02/18 14:34 Urine Nitrate Negative (NEGATIVE) 07/02/18 14:34 Urine Bilirubin Negative (NEGATIVE) 07/02/18 14:34 Urine Urobilinogen Normal mg/dL (0.2-1.0) 07/02/18 14:34 Ur Leukocyte Esterase 3+ Jose Angel/uL (Negative) H 07/02/18 14:34 Urine WBC (Auto) 114 /hpf (0-5) H 07/02/18 14:34 Urine RBC (Auto) 146 /hpf (0-3) H 07/02/18 14:34 Ur Squamous Epith Cells 1 /hpf (0-5) 07/02/18 14:34 Calcium Oxalate Crystal Occ /hpf (<OCC) H 07/02/18 14:34 Urine Bacteria Few (<OCC) H 07/02/18 14:34 Hyaline Casts 0-2 /lpf (0-2) 07/02/18 14:34 O2 Sat by Pulse Oximetry: 97 (RA) Pulse Ox Interpretation: Normal Medical Decision Making Medical Decision Making: Plan: --Labs --UA --CXR --IV Fluids --Rocephin IV Disposition Discussed With : Neville Cruz Doctor Will See Patient In The: Hospital - Disposition Disposition: HOSPITALIZED Disposition Time: 18:00 Condition: STABLE - POA Present On Arrival: None - Clinical Impression Clinical Impression: Acute urinary retention - PA / TAP BUILDER / Resident Statement MD/DO has reviewed & agrees with the documentation as recorded. - Scribe Statement The provider has reviewed the documentation as recorded by the Laurae Magalys Velez Provider Attestation All medical record entries made by the Diamond were at my direction and personally dictated by me. I have reviewed the chart and agree that the record accurately reflects my personal performance of the history, physical exam, medical decision making, and the department course for this patient. I have also personally directed, reviewed, and agree with the discharge instructions and disposition. Decision To Admit - Pt Status Changed To: Hospital Disposition Of: Inpatient - Admit Certification Admit to Inpatient:: After my assessment, the patient will require hospitalization for at least two midnights. This is because of the severity of symptoms shown, intensity of services needed, and/or the medical risk in this patient being treated as an outpatient. - InPatient: Physician Admission Certification: I certify that this patient requires 2 or more midnights of care for the following reason:: BPH. Retention - . Bed Request Type: Regular Admitting Physician: Neville Cruz Patient Diagnosis: Acute urinary retention
[2018-07-02] MEDS ORDERED: Potassium Ch 20mEq in D5W 1,000 ML IV SCH (15:45)
[2018-07-02] MEDS ORDERED: Glucagon Recombinant 1 mg Inj IM PRN (16:44)
[2018-07-02] MEDS ORDERED: Dextrose 50% SYRINGE Inj (50 ml) IV PRN (16:44)
[2018-07-02] MEDS: (Novolog) Insulin Aspart, Recombinant 100 u/ml 10 ml vial SC SCH ×2 (18:22→21:31)
[2018-07-02] MEDS ORDERED: (Novolog) Insulin Aspart, Recombinant 100 u/ml 10 ml vial SC SCH (22:00)
[2018-07-03] MEDS: Sodium Chloride 0.9% 1,000 ML IV SCH ×3 (00:30→15:52)
[2018-07-03 07:44] LABS: BASO # 0.1 K/uL (0.0-0.2); BASO % 1.1 % (0.0-2.0); EOS # 0.2 K/uL (0.0-0.7); EOS % 4.3 % (0.0-4.0); HEMOGLOBIN 9.7 g/dL (12.0-18.0); LYMPH # 1.3 K/uL (1.0-4.3); LYMPH % 26.8 % (20.0-40.0); MEAN CELL VOLUME 94.7 fL (80.0-94.0); MEAN CORPUSCULAR HEMOGLOBIN 30.7 pg (27.0-31.0); MEAN CORPUSCULAR HGB CONC 32.5 g/dL (33.0-37.0); MONO # 0.5 K/uL (0.0-0.8); MONO % 9.6 % (0.0-10.0); NEUT # 2.9 K/uL (1.8-7.0); NEUT % 58.2 % (50.0-75.0); RBC 3.17 Mil/uL (4.40-5.90); RED CELL DISTRIBUTION WIDTH 14.3 % (11.5-14.5)
[2018-07-03] MEDS: (Novolog) Insulin Aspart, Recombinant 100 u/ml 10 ml vial SC SCH ×4 (07:47→21:31)
[2018-07-03 07:57] LABS: CALCIUM 8.4 mg/dl (8.6-10.4)
[2018-07-03] MEDS: Vitamin B Complex/Vitamin C Tab PO SCH (10:05)
--- NOTE | 2018-07-03 11:12 | CARD ---
APPROVED REPORT Date of service: 07/02/2018 EKG Measurement Heart [id number] NV [id number] <Conclusion> Sinus rhythm with 1st degree AV block with premature supraventricular complexes Otherwise normal ECG non specific st t changes
[2018-07-03] MEDS ORDERED: Morphine 1 mg/ml preservative-free Inj(Duramorph) ONE (11:50)
[2018-07-03] MEDS ORDERED: Sodium Chloride 0.9% 1,000 ML IV ONE (13:07)
[2018-07-03] MEDS ORDERED: HYDROmorphone 0.5 mg/0.5 ml ISec IVP PRN (13:10)
[2018-07-03] MEDS ORDERED: Ciprofloxacin 400mg/200ml D5W 400 MG/200 ML BAG IVPB STA (13:26)
[2018-07-03 13:45] LABS: BASO # 0.1 K/uL (0.0-0.2); BASO % 1.5 % (0.0-2.0); EOS # 0.2 K/uL (0.0-0.7); EOS % 4.1 % (0.0-4.0); HEMOGLOBIN 10.4 g/dL (12.0-18.0); LYMPH % 21.3 % (20.0-40.0); MEAN CELL VOLUME 95.1 fL (80.0-94.0); MEAN CORPUSCULAR HEMOGLOBIN 30.5 pg (27.0-31.0); MEAN CORPUSCULAR HGB CONC 32.1 g/dL (33.0-37.0); MEAN PLATELET VOLUME 8.1 fL (7.2-11.7); MONO # 0.5 K/uL (0.0-0.8); MONO % 10.4 % (0.0-10.0); NEUT # 3.1 K/uL (1.8-7.0); NEUT % 62.7 % (50.0-75.0); NRBC % 0.1 % (0.0-2.0); RBC 3.4 Mil/uL (4.40-5.90); RED CELL DISTRIBUTION WIDTH 14.3 % (11.5-14.5); WHITE BLOOD COUNT 4.9 K/uL (4.8-10.8)
[2018-07-03 17:02] VITALS: RESP 20
--- NOTE | 2018-07-04 06:06 | HP ---
HISTORY OF PRESENT ILLNESS: This patient is a 78-year-old male with history of BPH, hypertension, and diabetes. This is a patient of mine for many years who was complaining of intermittent urinary retention, and has had prostate hypertrophy, and the patient was admitted to the emergency room for many times for this, and the decision was made, and the patient was resistant to do a cystoscopy and TURP. The patient was evaluated in the office and a stress test was done and medical clearance was done as outpatient. The patient came this morning and had the TURP done by Dr. Huerta, the urologist. ALLERGIES: THE PATIENT HAS NO KNOWN ALLERGY. PAST MEDICAL HISTORY: As I mentioned, history of hypertension, diabetes, and also history of BPH. SOCIAL HISTORY: The patient is , has children. No smoking or alcohol abuse. 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 FAMILY HISTORY: No inherited disease. REVIEW OF SYSTEMS: RESPIRATORY: No shortness of breath. CARDIOVASCULAR: No chest pain. GI: Denies constipation but has been having some anorexia. : The patient has plus continuous of the bladder plus cystoscopy and TURP. NEUROLOGIC: The patient is complaining of burning sensation to the feet. PHYSICAL EXAMINATION: GENERAL: The patient is alert, awake, and pleasant. VITAL SIGNS: Blood pressure 167/77, pulse 69, respirations 20, and temperature 97.3. HEENT: Head is normocephalic. NECK: Supple. No JVD. LUNGS: Clear. HEART: Regular rate and rhythm. ABDOMEN: Soft and mild epigastric tenderness. Bladder irrigation was clear with decreased fluid. EXTREMITIES: There is no edema. There is no tenderness. LABORATORY DATA: The patient's blood work was done; sodium 133, potassium 3, chloride 101, bicarb is 30, BUN 21, creatinine 1.4, glucose 194. WBC was 4.9, hemoglobin 10.5, hematocrit 32.3, and platelets 264. ASSESSMENT: Status post TURP, BPH, hypertension, diabetes, and neuropathy. PLAN: The plan is that we are going to add Lyrica on the medication, and be discontinued since the patient now is eating well. Neville Cruz MD [facility] # [id number]
[2018-07-04] MEDS: Sodium Chloride 0.9% 1,000 ML IV SCH ×2 (06:15→14:33)
[2018-07-04 08:02] LABS: BASO # 0.1 K/uL (0.0-0.2); BASO % 0.7 % (0.0-2.0); EOS # 0.2 K/uL (0.0-0.7); EOS % 2.3 % (0.0-4.0); HEMOGLOBIN 10.1 g/dL (12.0-18.0); LYMPH % 13.1 % (20.0-40.0); MEAN CELL VOLUME 94.7 fL (80.0-94.0); MEAN CORPUSCULAR HEMOGLOBIN 31.2 pg (27.0-31.0); MEAN CORPUSCULAR HGB CONC 32.9 g/dL (33.0-37.0); MEAN PLATELET VOLUME 8.5 fL (7.2-11.7); MONO # 0.8 K/uL (0.0-0.8); MONO % 10.3 % (0.0-10.0); NEUT # 5.5 K/uL (1.8-7.0); NEUT % 73.6 % (50.0-75.0); RBC 3.22 Mil/uL (4.40-5.90); RED CELL DISTRIBUTION WIDTH 14.1 % (11.5-14.5)
[2018-07-04 08:05] LABS: WHITE BLOOD COUNT 7.5 K/uL (4.8-10.8)
[2018-07-04] MEDS: (Novolog) Insulin Aspart, Recombinant 100 u/ml 10 ml vial SC SCH ×6 (08:25→22:02)
[2018-07-04 08:34] LABS: ALB/GLOB RATIO 1.2 (1.0-2.1); ALBUMIN 3.4 g/dL (3.5-5.0)
--- NOTE | 2018-07-04 09:56 | PCM.URO ---
Urology Progress Note - Objective Lab Results Last 24 Hours: Laboratory Results - last 24 hr 07/03/18 07/03/18 07/03/18 11:04 13:19 13:40 WBC 4.9 RBC 3.40 L Hgb 10.4 L Hct 32.3 L MCV 95.1 H MCH 30.5 MCHC 32.1 L RDW 14.3 Plt Count 264 MPV 8.1 Neut % (Auto) 62.7 Lymph % (Auto) 21.3 [facility] % (Auto) 10.4 H Eos % (Auto) 4.1 H Baso % (Auto) 1.5 Neut # (Auto) 3.1 Lymph # (Auto) 1.0 [facility] # (Auto) 0.5 Eos # (Auto) 0.2 Baso # (Auto) 0.1 Sodium Potassium Chloride Carbon Dioxide Anion Gap BUN Creatinine Est GFR ( Amer) Est GFR (Non-Af Amer) POC Glucose (mg/dL) 98 129 H Random Glucose Calcium Magnesium Total Bilirubin AST ALT Alkaline Phosphatase Total Protein Albumin Globulin Albumin/Globulin Ratio 07/03/18 07/03/18 07/04/18 16:38 21:10 07:14 WBC RBC Hgb Hct MCV MCH MCHC RDW Plt Count MPV Neut % (Auto) Lymph % (Auto) [facility] % (Auto) Eos % (Auto) Baso % (Auto) Neut # (Auto) Lymph # (Auto) [facility] # (Auto) Eos # (Auto) Baso # (Auto) Sodium Potassium Chloride Carbon Dioxide Anion Gap BUN Creatinine Est GFR ( Amer) Est GFR (Non-Af Amer) POC Glucose (mg/dL) 248 H 240 H 202 H Random Glucose Calcium Magnesium Total Bilirubin AST ALT Alkaline Phosphatase Total Protein Albumin Globulin Albumin/Globulin Ratio 07/04/18 07/04/18 07:51 07:51 WBC 7.5 D RBC 3.22 L Hgb 10.1 L Hct 30.5 L MCV 94.7 H MCH 31.2 H MCHC 32.9 L RDW 14.1 Plt Count 266 MPV 8.5 Neut % (Auto) 73.6 Lymph % (Auto) 13.[address] [facility] % (Auto) 10.3 H Eos % (Auto) 2.3 Baso % (Auto) 0.7 Neut # (Auto) 5.5 Lymph # (Auto) 1.0 [facility] # (Auto) 0.8 Eos # (Auto) 0.2 Baso # (Auto) 0.1 Sodium 138 Potassium 3.4 L Chloride 101 Carbon Dioxide 30 Anion Gap 10 BUN 16 Creatinine 1.5 Est GFR ( Amer) 55 Est GFR (Non-Af Amer) 45 POC Glucose (mg/dL) Random Glucose 215 H D Calcium 8.0 L Magnesium 1.3 L Total Bilirubin 0.4 AST 21 ALT 15 L D Alkaline Phosphatase 165 H Total Protein 6.3 Albumin 3.4 L D Globulin 2.9 Albumin/Globulin Ratio 1.2 Intake & Output: Intake & Output 07/03/18 07/04/18 07/04/18 18:59 06:59 18:59 Intake Total 1000 9100 Output Total 500 6950 Balance 500 2150 Intake: IV 500 Intake, IV Amount 500 1600 Left Forearm 500 1600 Oral 500 Other 7000 Output: Urine 500 6950 Urethral ([place]) 4600 Other: # Bowel Movements 0 Vital Signs: Vital Signs - 24 hr 07/03/18 07/03/18 07/03/18 13:07 13:22 13:35 Temperature 97 F L Pulse Rate 76 73 74 Respiratory 17 17 13 Rate Blood Pressure 139/73 126/66 126/76 O2 Sat by Pulse 96 96 99 Oximetry 07/03/18 07/03/18 07/03/18 13:47 14:00 14:15 Temperature Pulse Rate 74 77 75 Respiratory 15 12 17 Rate Blood Pressure 112/79 112/75 118/82 O2 Sat by Pulse 99 99 99 Oximetry 07/03/18 07/03/18 07/04/18 14:25 15:00 00:00 Temperature 97 F L 97.3 F L 98.4 F Pulse Rate 79 69 70 Respiratory 16 20 20 Rate Blood Pressure 155/72 H 167/77 H 162/78 H O2 Sat by Pulse 99 97 96 Oximetry 07/04/18 07:00 Temperature 98.7 F Pulse Rate 70 Respiratory 20 Rate Blood Pressure 172/82 H O2 Sat by Pulse 96 Oximetry
[2018-07-04] MEDS ORDERED: Influenza Vaccine 60 mcg/0.5 mL SYR (4YR UP) IM ONE (10:00)
[2018-07-04] MEDS: Vitamin B Complex/Vitamin C Tab PO SCH (10:04)
[2018-07-04] MEDS: Potassium Chloride 20 mEq ER Tab PO SCH (17:53)
--- NOTE | 2018-07-05 01:26 | PN ---
DATE: 07/04/2018 SUBJECTIVE: The patient was seen earlier and was still having bladder irrigation, and the patient, however, denied any abdominal pain. No shortness of breath. PHYSICAL EXAMINATION: VITAL SIGNS: The patient has blood pressure of 164/79, pulse 81, respirations 20, temperature 98.2. NECK: Supple. No JVD. LUNGS: Clear. HEART: Regular rate and rhythm. Positive murmur as before. ABDOMEN: Soft. No tenderness in the epigastric area but as I mentioned the urine is blood tinged. EXTREMITIES: There is no edema. No tenderness. LABORATORY DATA: Showed WBC of 7.5, hemoglobin 10.1, hematocrit 31.5, and platelets is 266. Chemistries, sodium 138, potassium 3.4, chloride 101, bicarb is 30, BUN 16, creatinine 1.5, glucose 215, calcium is 8, magnesium 1.3. PLAN: We are going to continue the irrigation as per urologist, and the magnesium will be replaced and repeated in the morning and should do blood work. Case was discussed with Nelda Avina, the nurse practitioner. Neville Cruz MD
[2018-07-05] MEDS: Sodium Chloride 0.9% 1,000 ML IV SCH (02:15)
[2018-07-05] MEDS: (Novolog) Insulin Aspart, Recombinant 100 u/ml 10 ml vial SC SCH ×4 (08:14→21:41)
[2018-07-05] MEDS ORDERED: Magnesium Citrate Oral SOL (300 ml) PO ONE (11:00)
[2018-07-05] MEDS ORDERED: Oxycodone/Acetaminophen 5/325 mg Tab PO PRN (11:15)
[2018-07-05] MEDS: Vitamin B Complex/Vitamin C Tab PO SCH (11:22)
[2018-07-05] MEDS: Potassium Chloride 20 mEq ER Tab PO SCH (11:27)
[2018-07-05 14:12] LABS: BASO # 0.1 K/uL (0.0-0.2); BASO % 0.7 % (0.0-2.0); EOS # 0.2 K/uL (0.0-0.7); EOS % 1.5 % (0.0-4.0); HEMOGLOBIN 10.2 g/dL (12.0-18.0); LYMPH # 0.8 K/uL (1.0-4.3); MEAN CELL VOLUME 93.9 fL (80.0-94.0); MEAN CORPUSCULAR HEMOGLOBIN 31.1 pg (27.0-31.0); MEAN CORPUSCULAR HGB CONC 33.1 g/dL (33.0-37.0); MEAN PLATELET VOLUME 8.7 fL (7.2-11.7); MONO # 0.7 K/uL (0.0-0.8); MONO % 6.6 % (0.0-10.0); NEUT # 8.4 K/uL (1.8-7.0); NEUT % 83.2 % (50.0-75.0); PLATELET COUNT 248 K/uL (130-400); RBC 3.27 Mil/uL (4.40-5.90); RED CELL DISTRIBUTION WIDTH 14.1 % (11.5-14.5); WHITE BLOOD COUNT 10.1 K/uL (4.8-10.8)
[2018-07-05 14:25] LABS: ALB/GLOB RATIO 1.2 (1.0-2.1); ALBUMIN 3.4 g/dL (3.5-5.0); CALCIUM 8.2 mg/dl (8.6-10.4)
[2018-07-05 14:39] LABS: EOSINOPHIL 1 % (0-4); LYMPHOCYTE 8 % (20-40); MONOCYTE 3 % (0-10); NEUTROPHIL 88 % (50-75); PLATELET ESTIMATE NORMAL (NORMAL); TOTAL CELLS COUNTED 100
[2018-07-05] MEDS ORDERED: Potassium Chloride 20 mEq ER Tab PO ONE (16:45)
--- NOTE | 2018-07-06 00:07 | PN ---
DATE: 07/05/2018 SUBJECTIVE: Today, the patient is alert and awake. The patient was complaining of some abdominal pain this morning. Denied any shortness of breath or dizziness. Also, the patient is complaining of some difficulty walking. PHYSICAL EXAMINATION: VITAL SIGNS: The patient has blood pressure now somewhat elevated 175/89, pulse 63, respirations 20, temperature 98.1. NECK: Supple. LUNGS: Clear. HEART: Regular rate and rhythm. Positive murmur. ABDOMEN: Soft, nontender. EXTREMITIES: There is no edema, no tenderness. LABORATORY DATA: Urine is lary. Blood test done today showed WBC 10.1, hemoglobin 10.2, hematocrit 30.7, and platelet is 248. Chemistry showed that sodium 136, potassium 2.9, chloride 100, bicarb is 30, BUN 16, creatinine 1.5, glucose 231, calcium 8.2. ASSESSMENT AND PLAN: We are going to replace the potassium and repeat the blood pressure in the morning and also actually now the bladder irrigation is stopped and the urine is lary of color. Blood pressure adjusted. Neville Cruz MD
[2018-07-06] MEDS: (Novolog) Insulin Aspart, Recombinant 100 u/ml 10 ml vial SC SCH ×3 (07:55→19:03)
[2018-07-06 08:00] LABS: BASO # 0.1 K/uL (0.0-0.2); BASO % 0.9 % (0.0-2.0); EOS # 0.2 K/uL (0.0-0.7); EOS % 2.3 % (0.0-4.0); HEMOGLOBIN 10.8 g/dL (12.0-18.0); LYMPH # 1.3 K/uL (1.0-4.3); LYMPH % 14.6 % (20.0-40.0); MEAN CELL VOLUME 93.4 fL (80.0-94.0); MEAN CORPUSCULAR HEMOGLOBIN 30.8 pg (27.0-31.0); MEAN PLATELET VOLUME 8.8 fL (7.2-11.7); MONO # 0.7 K/uL (0.0-0.8); MONO % 7.7 % (0.0-10.0); NEUT # 6.7 K/uL (1.8-7.0); NEUT % 74.5 % (50.0-75.0); RBC 3.5 Mil/uL (4.40-5.90); RED CELL DISTRIBUTION WIDTH 13.9 % (11.5-14.5)
[2018-07-06 08:22] LABS: ALB/GLOB RATIO 1.1 (1.0-2.1); ALBUMIN 3.8 g/dL (3.5-5.0); CALCIUM 8.7 mg/dl (8.6-10.4)
[2018-07-06] MEDS: Vitamin B Complex/Vitamin C Tab PO SCH (10:16)
[2018-07-06] MEDS: Potassium Chloride 20 mEq ER Tab PO SCH (10:16)
[2018-07-06 17:14] VITALS: BP 156/78; PULSE 87; TEMP 98; O2SAT 97
--- NOTE | 2018-07-06 18:27 | PCM.URO ---
Urology Progress Note - Subjective Other: see many previous dictated notes including today. it is currently 6:30 pm. i saw pt at 7:55 am and he insisted despite my best recommendation that we remove the dumas catheter . i spoke with the nurse montse several times. pt voided 50 cc and 20 cc and a bladder scan of 750cc plus . new catheter inserted . pt has called my cell phone literally 11 times today . i have explained the final discharge is in the hands of dr matias. and that he is cleared from my end but i wont enter the discharge order. the nurse has called dr matias and i have recomended to reverend best that he should call directly himself . plans : discharge with dumas catheter. - Objective Lab Results Last 24 Hours: Laboratory Results - last 24 hr 07/05/18 07/06/18 07/06/18 21:28 07:12 07:44 WBC RBC Hgb Hct MCV MCH MCHC RDW Plt Count MPV Neut % (Auto) Lymph % (Auto) [place] % (Auto) Eos % (Auto) Baso % (Auto) Neut # (Auto) Lymph # (Auto) [place] # (Auto) Eos # (Auto) Baso # (Auto) Sodium 136 Potassium 3.6 Chloride 100 Carbon Dioxide 28 Anion Gap 12 BUN 18 Creatinine 1.6 H Est GFR ( Amer) 51 Est GFR (Non-Af Amer) 42 POC Glucose (mg/dL) 269 H 168 H Random Glucose 155 H D Calcium 8.7 Total Bilirubin 0.5 AST 21 ALT 16 L Alkaline Phosphatase 178 H Total Protein 7.1 Albumin 3.8 Globulin 3.3 Albumin/Globulin Ratio 1.1 07/06/18 07/06/18 07/06/18 07:46 11:21 16:44 WBC 9.0 RBC 3.50 L Hgb 10.8 L Hct 32.7 L MCV 93.4 MCH 30.8 MCHC 33.0 RDW 13.9 Plt Count 272 MPV 8.8 Neut % (Auto) 74.5 Lymph % (Auto) 14.6 L [place] % (Auto) 7.7 Eos % (Auto) 2.3 Baso % (Auto) 0.9 Neut # (Auto) 6.7 Lymph # (Auto) 1.3 [place] # (Auto) 0.7 Eos # (Auto) 0.2 Baso # (Auto) 0.1 Sodium Potassium Chloride Carbon Dioxide Anion Gap BUN Creatinine Est GFR ( Amer) Est GFR (Non-Af Amer) POC Glucose (mg/dL) 303 H 134 H Random Glucose Calcium Total Bilirubin AST ALT Alkaline Phosphatase Total Protein Albumin Globulin Albumin/Globulin Ratio Intake & Output: Intake & Output 07/05/18 07/06/18 07/06/18 18:59 06:59 18:59 Intake Total 1400 1620 900 Output Total 1500 1800 350 Balance -100 -180 550 Intake: Intake, IV Amount 800 900 100 Left Forearm 800 900 100 Oral 600 720 800 Output: Urine 1500 1800 350 Urethral (Dumas) 1500 1800 350 Other: # Voids Urethral (Dumas) 2 # Bowel Movements 1 1 Vital Signs: Vital Signs - 24 hr 07/05/18 07/06/18 07/06/18 23:22 05:55 08:00 Temperature 98.7 F 98.8 F 98.3 F Pulse Rate 81 91 H Respiratory 20 20 20 Rate Blood Pressure 180/84 H 188/85 H 140/78 O2 Sat by Pulse 97 99 96 Oximetry 07/06/18 07/06/18 07/06/18 10:15 10:16 16:00 Temperature 98 F Pulse Rate 87 Respiratory 20 Rate Blood Pressure 140/78 140/78 156/78 H O2 Sat by Pulse 97 Oximetry
--- NOTE | 2018-07-07 01:17 | PN ---
DATE: 07/06/2018 SUBJECTIVE: Today, the patient was seen early this morning and the [place] catheter was out, but the patient has only voided about 60 mL of urine and second time 20 mL. The patient wants to go home, but I advised how much the patient will void before discharge. PHYSICAL EXAMINATION: VITAL SIGNS: The patient has blood pressure of 157/78, pulse 87, respirations 20, temperature 98 degrees Fahrenheit. NECK: Supple. LUNGS: Clear. HEART: Regular rate and rhythm. ABDOMEN: Soft, nontender. No palpable mass. EXTREMITIES: There is no edema. PLAN: Early this morning, we are waiting for the patient to void before discharge. ADDENDUM: As with Dr. Huerta's note, he reported that the patient had a bladder scan that had 750 mL plus, so Canada catheter was inserted. At this time, we will consider to discharge this patient home with Canada catheter. Neville Cruz MD
--- NOTE | 2018-07-08 08:27 | OP ---
PROCEDURE DATE: 07/03/2018 UROLOGY OPERATIVE REPORT PREOPERATIVE DIAGNOSES: Urinary retention, elevated prostate-specific antigen, gigantic prostate, benign prostatic hypertrophy, voiding dysfunction, gross hematuria, recurring episodes of infection and retention. POSTOPERATIVE DIAGNOSES: Urinary retention, elevated prostate specific antigen, gigantic prostate, benign prostatic hypertrophy, voiding dysfunction, gross hematuria, recurring episodes of infection and retention. PROCEDURE: GreenLight laser energy photovaporization of the prostate and resection of the prostate. SURGEON: Iftikhar Huerta MD COMPLICATIONS: There were no complications. BLOOD LOSS: Less than 25 mL. At the termination of the procedure, the patient has an open canal from the prostatic urethra, from the prostatic veru into the bladder neck. See the body of the report. The other operative findings: There is a lot of inflammation around the bladder neck, which does not appear to be bladder cancer (see below the plan). There is a lot of erythema within the bladder in general, specifically around the bladder neck. Overall, the patient made it through the procedure without complication. We worked diligently and overall were able to get a good channel open for the patient's prostate. INDICATIONS: See history and physical for the details and complications and other multiple medical notes. The patient is a very pleasant but extremely noncompliant gentleman who is here now for the above-listed procedure. I explained the patient to have surgical intervention for his prostate. It is a tremendously big prostate. He subsequently admitted only allowed and had emergently suprapubic catheter insertion. That only acted temporarily, and then once the patient was able to urinate, he does not come in. He only comes to the office looking for erectile dysfunction now for the last month or more, he has been in retention and he has not broken in the past now he is allowing surgical intervention, but he would not allow open operation. I have explained to the patient that he should get a second opinion because he anybody else. He only wants me to do the surgery, but he would not think of having the open surgery on my recommendation. We discussed robot. We discussed a lot of different things. We actually discussed all the different things procedure. Now that we have done the procedure, I could say that I still think he should have an open operation, but we were able to create a channel and it is going to be a longstanding duration, and again we used a GreenLight laser which takes a little bit longer to heal and no tissues removed. He did not have bleeding. It should be mentioned that the patient came to the OR with a significant amount of blood in his urine via the [place]. It was an extremely juicy, erythematous prostate. At the termination of the procedure, while the patient is dry, there is no bleeding, and we were able to have a good channel. DESCRIPTION OF PROCEDURE: After obtaining informed consent, the patient was placed on the table. Routine monitors were placed. A time-out was called to confirm the patient and positioning, antibiotic prophylaxis. The patient is already on antibiotics. We introduced the fiber with the visual obturator. We identified the above state and it was down to the hub. See the pictures that are in the chart. It was really literally down to the hub. We were able to push a little further, so we could see the bladder neck more and we had good visualization. Again, there was a moderate intraductal component, so I cannot not really but I am to stay away from the the bladder neck. We thought that with energy converted over from the visual obturator to the working channel. We opened up the bladder neck. Between 5 and 7, we started with we went slowly, each quadrant by quadrant. Diligently, carefully, meticulously, slowly but rapidly, of course, no wasting time to get through the gigantic prostate being mindful of the time, the patient is under anesthesia. venous bleeding. Although in this case, we had really good control throughout all time. We went diligently, carefully, periodically checking all landmarks. We were nowhere near the bladder neck . But, we were able to make a nice, good, wide open channel on each side between 5 and 7, then 7 up to 11 and then 5 up to 1. Eventually, we anteriorly throughout the roof, although it was somewhat more difficult. At the termination, we turned off all the water we watched for irrigation, minimal to no bleeding. The patient tolerated the procedure well and it was opened nicely. We took multiple pictures. Then, I put a Canada catheter by urethra and put out 50 mL of urine with moderate traction. The patient tolerated it well without complications, was brought to the recovery room in stable condition. Iftikhar Huerta MD
--- NOTE | 2018-07-10 09:06 | DS ---
The patient is 78-year-old male who came to the emergency room because the patient was in urinary retention secondary to a prostate hypertrophy, so the patient was in and out of the hospital because of the urinary retention, and finally, the patient had decided to have a surgery done, and the patient was admitted and consult was made by Dr. Huerta, the urologist. The patient had evaluation of the prostate, and the patient received irrigation of the bladder until the urine was clear, and the patient was sent to the floor, however, after removing the Canada catheter, the patient had again some difficulty to urinate. The patient was adamant to go home and Canada catheter was reinserted, and the patient went home and will follow with Dr. Huerta and myself. Also, we have to mention that the patient has some difficulty walking and complaining of some problems with the legs and unsteady gait. Outpatient physical therapy will be also ordered. Case was discussed with the patient before the discharge. Neville Cruz MD
== END 2018-07-06 21:18 | disposition left against medical advice (07) | DRG 714 ==
LOC: C.ER 13:27 → C.9E 14:45 → C.3T 15:35
PROVIDERS: ADMIT Specialist; ATTEND Specialist
PROC: 0V508ZZ Destruction of Prostate, Via Natural or Artificial Opening Endoscopic (ICD-10-PCS; principal; 2018-07-03 10:45)
DX: N40.1 Benign prostatic hyperplasia with lower urinary tract symptoms (principal); R33.8 Other retention of urine; R31.0 Gross hematuria; I10 Essential (primary) hypertension; E78.00 Pure hypercholesterolemia, unspecified; M81.0 Age-related osteoporosis without current pathological fracture; Z91.19 Patient's noncompliance with other medical treatment and regimen; E11.40 Type 2 diabetes mellitus with diabetic neuropathy, unspecified; R26.81 Unsteadiness on feet